=== PATIENT | female | born 1960 | race Two or more races ===

== ENCOUNTER 2023-01-09 12:01 | Outpatient (CLI) | payer OTHER ==
[2023-01-24] MEDS ORDERED: LEVOTHYROXINE25 MCG PO (12:14)
[2023-01-24] MEDS ORDERED: PLAQUINIL PO (12:15)
[2023-01-24] MEDS ORDERED: UPADACITINIB PO (12:16)
[2023-01-24] MEDS ORDERED: CELEBREX200MG PO (12:16)
[2023-01-24] MEDS ORDERED: METHOTREXA25 MG/1 M5 PO (12:17)
[2023-01-24] MEDS ORDERED: PANTOPRAZOLE SO40 M2 PO (12:18)
[2023-01-24] MEDS ORDERED: FOSAMAX70 MG PO (12:18)
[2023-01-24] MEDS ORDERED: [UNRECOGNIZED DRUG - OTHER] PO (12:19)
[2023-01-24] MEDS ORDERED: FARXIGA10 MG PO (12:19)
[2023-01-24] MEDS ORDERED: SIMVAST PO (12:20)
== END 2023-01-09 12:25 | disposition home or self-care (01) ==
LOC: SONOGRAMA 12:01
PROVIDERS: ATTEND Pathology Anatomic Pathology & Clinical Pathology
DX: C83.85 Other non-follicular lymphoma, lymph nodes of inguinal region and lower limb (principal)

== ENCOUNTER 2023-01-30 05:04 | Day surgery (SDC) | payer OTHER ==
[~2023-01-30] VITALS: Ht 167.6 cm; Wt 76.2 kg
[~2023-01-30 05:04] MED LIST: CELEBREX200MG PO; FARXIGA10 MG PO; FOSAMAX70 MG PO; LEVOTHYROXINE25 MCG PO; METHOTREXA25 MG/1 M5 PO; PANTOPRAZOLE SO40 M2 PO; PLAQUINIL PO; SIMVAST PO; UPADACITINIB PO; [UNRECOGNIZED DRUG - OTHER] PO
== END 2023-01-30 12:50 | disposition home or self-care (01) ==
LOC: CIR.AMB 05:04
PROVIDERS: ATTEND Specialist
DX: I88.8 Other nonspecific lymphadenitis (principal); Z88.6 Allergy status to analgesic agent; Z87.891 Personal history of nicotine dependence; E03.9 Hypothyroidism, unspecified; I10 Essential (primary) hypertension

== ENCOUNTER 2025-04-15 06:10 | Day surgery (SDC) | payer OTHER ==
[2025-04-14 09:31] LABS: URINE APPEARANCE Clear; URINE BILIRRUBIN Negative (NEGATIVE); URINE BLOOD Moderate; URINE COLOR Yellow; URINE GLUCOSE Negative (NEGATIVE); URINE KETONE Negative (NEGATIVE); URINE LEUKOCYTE Negative; URINE NITRATE Negative; URINE PROTEIN Negative (NEGATIVE); URINE UROBILINOGEN 0.2 E.U./dl
[2025-04-14 09:32] LABS: URINE BACTERIA 70.9 uL (0.0-1933); URINE EPITHELIAL CELLS 8.2 uL (0.0-38.8); URINE RBC 51.7 uL (0.0-20.8)
[2025-04-14 09:47] LABS: URINE CAST 0.44 uL (0.0-1.40)
[2025-04-14 09:48] LABS: BASO % 0.2 % (0.1-1.2); EOS # 0.03 (0.04-0.54); EOS % 0.6 % (0.7-7.0); HEMOGLOBIN 13.3 g/dL (11.2-15.7); LYMPH # 1.19 (1.18-3.74); LYMPH % 25.6 % (19.3-53.1); MEAN CORPUSCULAR HEMOGLOBIN 33.3 pg (25.6-32.2); MONO # 0.61 (0.24-0.82); NEUT # 2.79 (1.56-6.13); NEUT % 60.3 % (34.0-71.1); PLATELET COUNT 228 K/uL (163-369); RED BLOOD COUNT 3.99 M/uL (3.93-5.22); RED CELL DISTRIBUTION WIDTH 13.2 % (11.6-14.4)
[2025-04-14 10:02] LABS: PARTIAL THROMBOPLASTIN TIME 25.5 SECONDS (22.0-34.0); PROTHROMBIN TIME 10.9 SECONDS (9.0-11.5)
[2025-04-14 10:03] LABS: MONO % 13.1 % (4.7-12.5)
[2025-04-14 10:16] LABS: COVID-19 AG NEGATIVE (NEGATIVE)
[2025-04-14 10:56] LABS: ALBUMIN 3.8 gm/dL (3.4-5.0); BILIRUBIN TOTAL 0.71 mg/dL (0.3-1.2); CALCIUM 9.3 mg/dL (8.5-10.1); CREATININE SERUM 0.7 mg/dL (0.55-1.02); GFR 83.72; GLOBULINA 3.5 G/DL (2.4-3.5); POTASSIUM 4.63 mEq/L (3.5-5.1); TOTAL PROTEIN 7.3 gm/dL (6.4-8.2)
[2025-04-14 10:59] VITALS: BP 132/75
[~2025-04-15] VITALS: Ht 162.6 cm; Wt 72.1 kg
[2025-04-15] MEDS ORDERED: CEFAZOLIN SODIUM 1,000 MG VIAL ONE ×3 (08:15→11:59)
[2025-04-15] MEDS ORDERED: CHLORHEXIDINE GLUCONATE 120 ML BOTTLE TOP ONE (10:01)
[2025-04-15] MEDS ORDERED: GENTAMICIN SULFATE 40 MG/ML VIAL ONE (11:59)
[2025-04-15] MEDS ORDERED: MORPHINE SULFATE 4 MG/ML VIAL IV ONE (17:10)
== END 2025-04-15 18:10 | disposition home or self-care (01) ==
LOC: CIR.AMB 06:10
PROVIDERS: ATTEND Surgery
DX: C50.311 Malignant neoplasm of lower-inner quadrant of right female breast (principal); N60.82 Other benign mammary dysplasias of left breast; R92.1 Mammographic calcification found on diagnostic imaging of breast; D48.62 Neoplasm of uncertain behavior of left breast; R59.0 Localized enlarged lymph nodes; Z88.6 Allergy status to analgesic agent